=== PATIENT | female | born 1960 | race Caucasian/White ===

== ENCOUNTER 2024-05-17 07:17 | Day surgery (SDC) | payer MEDICARE, OTHER, SELFPAY ==
--- NOTE | 2024-05-17 | PATH_ITS ---
[facility] Accession Number: [id number] No. of containers..01 Tissue . 01 Material submitted: . colon - COLON MASS AT 20 . 01 Diagnosis: COLON MASS AT 20 CM: Tubular adenoma. See comment. MRV 05/22/2024 1320 Local . 01 Comment: The clinical impression of a mass is noted. While no malignancy is seen, correlation with endoscopy is recommended to rule out the possibility of an unsampled, more concerning lesion. . 01 Electronically signed: . Sravanthi Sanabria DO, Pathologist NPI- [id number] . 01 Gross description: . COLON MASS AT 20: Received in formalin are 3 fragment(s) of wen, soft tissue measuring 0.1 x 0.1 x 0.1 cm to 0.4 x 0.3 x 0.2 cm submitted entirely in 1 cassette(s) /ITZ 05/18/2024 0047 Local . 01 Pathologist provided ICD-10: Z12.11 . 01 CPT . 918903 Specimen Comment: A courtesy copy of this report has been sent to [facility] Pathology Performed at: 01 [facility] [address] [place] [address], [place], [place] [id number] MD Alexei Gavin MD Phone: [phone]
[2024-05-17 08:37] VITALS: BP 133/83; PULSE 90; RESP 18; TEMP 37.1; O2SAT 99
[2024-05-17] MEDS: SODIUM CHLORIDE 0.9% 1,000 ML 42 ML IV (08:39)
--- NOTE | 2024-05-17 09:31 | P.HP_ITS ---
History of Present Illness History of Present Illness Date Patient Seen: 05/17/24 Time Patient Seen: 09:32 Chief complaint: Colonoscopy [facility] Medical History (Updated 05/17/24 @ 09:33 by Melisa Jeff MD) Hiatal hernia GERD (gastroesophageal reflux disease) Diarrhea Hypertension DVT (deep venous thrombosis) Pulmonary embolism Surgical History (Updated 05/17/24 @ 08:20 by Ny Meyer RN) History of neck surgery Social History Smoking Status: Never smoker alcohol intake: never Meds Home Medications and Allergies Home Medications Medication Instructions Recorded Confirmed Type sodium,potassium,mag sulfates 17.5 See Rx Instructions PO .COMPLEX 04/19/24 Rx gram-3.13 gram-1.6 gram oral soln #354 mL (Suprep Bowel Prep Kit) apixaban 5 mg tablet (Eliquis) 5 mg PO BID 05/17/24 05/17/24 History lisinopril 10 mg tablet 10 mg PO DAILY 05/17/24 05/17/24 History Allergies Allergy/AdvReac Type Severity Reaction Status Date / Time No Known Drug Allergies Allergy Verified 05/17/24 08:11 Review of Systems Review of Systems Narrative: Chronic diarrhea, x 20 yrs.. ROS: Yes All systems reviewed with the patient and are negative except as otherwise documented Exam Vital Signs (past 8 hours): - 05/17/24 08:37 Temperature 98.8 F Pulse Rate 90 Respiratory Rate 18 Blood Pressure 133/83 Pulse Oximetry 99 Oxygen Delivery Method Room Air Oxygen Delivery Method Room Air Narrative Exam Narrative: Normal abdominal exam, no abnormalities. Assessment & Plan Assessment and plan (1) Encounter for screening colonoscopy: Problem details: 2 previous colonoscopies, last 10 yrs ago, all NORMAL. Had bowel prep yesterday, and stopped Eliquis 2 days ago, will do colonoscopy NOW. Status: Acute Time-Based Coding :: [TOTAL MINUTES] spent with patient and on the chart (including review of chart, obtaining history, exam, reviewing outside data, placing orders, documenting exam and treatment plan, and counseling patient) on [DATE].
--- NOTE | 2024-05-17 09:31 | PM.OP.COLON ---
Operative Date/Time/Diagnoses Date of procedure: 05/17/24 Time of procedure: 09:34 Procedure & Clinicians Surgeon: Melisa Jeff Procedure Notes Procedure in detail: OPERATIVE / PROCEDURE NOTE Haylee Tobar, 1960, 63,Female,CSN: [id number] 05/17/24 PREOPERATIVE DIAGNOSIS: H/O diarrhea x 20+ yrs, last colonoscopy 10 yrs ago was NORMAL. POSTOPERATIVE DIAGNOSIS: Same + Per the colonoscopy to the cecum: 0.5 cm polypectomy performed at 20 cm from the anal verge, rectal. PROCEDURE DONE: Colonoscopy to the cecum. ANESTHESIA: MAC per Anesthesia. COMPLICATIONS: None. SPECIMENS: None. ESTIMATED BLOOD LOSS: NONE. CONDITION: Stable to the PACU. OPERATIVE DESCRIPTION: After proper informed consent was signed by the patient knowing all the risks, benefits, and potential complications and possible alternatives of the procedure, the patient was appropriately identified. Haylee Tobar underwent a bowel prep that was very efficient yesterday, and the colon was clean. After institution of sedation on her left lateral decubitus position, a rectal exam was performed. Normal rectal and anal tone was found. The Olympus colonoscope was placed into her anus and under direct visualization was advanced from the rectum to the rectosigmoid to the sigmoid to the left colon, splenic flexure, transverse colon, hepatic flexure, ascending colon, and all the way to the cecum. Circumferential visualization of the mucosa was possible. The appendix aperture was noted. The ileocecal valve was noted. No large tumors. No ulcers. No inflammatory bowel disease changes were noted. No diverticulae noted in the sigmoid colon. 0.5 cm polypectomy performed at 20 cm from the anal verge, rectal. In the rectum, the scope was retroflexed, and Grade I internal hemorrhoids were noted. The scope was straightened back again. The colon was decompressed, and the scope was retracted out uneventfully. The patient tolerated the procedure well without any complications, was sent to the PACU in stable condition. RECOMMENDATIONS: Continue high-fiber diet - 30-40 gm/day with daily fiber supplementation. Will recommend the time of the next due colonoscopy AFTER the pathology results.
[2024-05-17 09:58] VITALS: BP 124/61; PULSE 83; RESP 15; TEMP 36.8; O2SAT 97
[2024-05-17 10:02] VITALS: BP 122/77; PULSE 80; RESP 13; TEMP 36.6; O2SAT 96
[2024-05-17 10:08] VITALS: BP 134/77; PULSE 81; RESP 20; O2SAT 94
== END 2024-05-17 10:20 | disposition home or self-care (01) ==
PROVIDERS: Referring Provider Surgery; Visit Provider Surgery
PROC: 0DJD8ZZ Inspection of Lower Intestinal Tract, Via Natural or Artificial Opening Endoscopic (ICD-10-PCS; CPT 45378; principal; 2024-05-17 08:45)
DX: Z12.11 Encounter for screening for malignant neoplasm of colon (principal); K64.0 First degree hemorrhoids; D12.6 Benign neoplasm of colon, unspecified
CPT/HCPCS: 45380; 45385; J2704

== ENCOUNTER → 2024-07-17 13:59 | Outpatient (CLI) | payer MEDICARE, OTHER, SELFPAY ==
--- NOTE | 2024-07-17 14:02 | DI.RAD.S_ITS ---
PROCEDURE: XR DEXA AXIAL SKELETON INDICATIONS: MENOPAUSAL STATE COMPARISON: None. FINDINGS: Lumbar Spine: Bone mineral density 1.266 g/cm2, T score 2.0. Left Femoral Neck: Bone mineral density 0.855 g/cm2, T score 0.1 Left Hip: Bone mineral density 1.054 g/cm2, T score 0.9. Fracture Risk Calculation (when applicable): 10-year fracture risk of a major osteoporotic fracture 5.8 percent and of a hip fracture 0.2 percent. (T score greater or equal to -1.0 to: NORMAL) (T score from -1.1 to -2.4: OSTEOPENIA) (T score less than or equal to -2.5: OSTEOPOROSIS) IMPRESSION: Normal---recommend repeat DEXA as clinically indicated. Follow-up guidelines as follows: Osteoporosis: Consider a repeat DEXA and Vertebral Fracture Assessment (VFA) exam in 2 years or sooner if medically necessary, to reassess this patient's status. Osteopenia: Consider a repeat DEXA in 2-3 years to reassess this patient's status, or if there is a new clinical indication. Normal: Consider a repeat DEXA in 5 years or sooner, or if there is a new clinical indication. All treatment decisions require clinical judgment and consideration of individual patient factors, including patient preferences, comorbidities, previous drug use, risk factors not captured in the FRAX model (e.g., frailty, falls, vitamin D deficiency, increased bone turnover, interval significant decline in bone density ) and possible under- or over-estimation of fracture risk by FRAX. In addition, the NOF Guide recommends that FDA-approved medical therapies be considered in postmenopausal women and men age >= 50 years with a: * Hip or vertebral (clinical or morphometric) fracture * T-score of <=-2.5 at the spine or hip * Ten-year fracture probability by FRAX of >= 3% for hip fracture or >=20% for major osteoporotic fracture. Dictated by: Hudson Gill M.D. on 07/18/2024 at 3:27 Approved by: Hudson Gill M.D. on 07/18/2024 at 3:28
== END ==
LOC: RAD 14:01
PROVIDERS: Referring Provider Internal Medicine; Visit Provider Internal Medicine
DX: N95.8 Other specified menopausal and perimenopausal disorders (principal)
CPT/HCPCS: 77080

== ENCOUNTER → 2025-03-07 14:09 | Outpatient (CLI) | payer MEDICARE, OTHER, SELFPAY ==
--- NOTE | 2025-04-02 08:48 | DIAB.MNT ---
Initial Diabetes Medical Nutrition Therapy Assessment Name: Haylee Tobar Date: 03/07/25 Time: 3-4p Dx: Type II Diabetes Provider: Janes Nuñezerine presents for initial DM visit. FH of maternal DM. fighting this for 20 years with prediabetes, Diet changes are significant per report. Cut out carrots and tomatoes. 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 Not taking any DM meds. Has some concerns about senior care safety of DM meds. Diet Recall: 830a: eggs, salsa, +/- cheese and low CHO tortilla or nothing sn: nothing or small burger or apple or dried mushroom snack 4p: chicken or pork with veggies and possibly small bite of potato Eyes: UTD Anthropometrics: Ht: 65 Wt: 236# 02/2025 Weight history: Physical Activity: Barriers include knee and hip pain. no program. Self-Monitoring Blood Glucose: Checking TID. Reports FBG 95-111mg/dl and pc readings 95-124mg/dl. Generally BG can range from 73-141mg/dl per report. none for review. Date Pre Post Pre Post Pre Post HS Diabetes Medications: 0.75mg Trulicity-- not taking 500mg Metformin -- not taking Pertinent Labs: 6.6% 12/2024 Past Medical History: (Last Updated 12/31/24 @ 19:45 by Bronwyn Beckham) Abnormal Pap smear of cervix (~2016) Chicken pox (~1965) Chlamydia (~1984) Diabetes mellitus (~2018) Diarrhea DVT (deep venous thrombosis) (~2021) GERD (gastroesophageal reflux disease) Glaucoma Hiatal hernia History of incontinence of feces History of urinary incontinence Hypertension (~1992) Irritable bowel syndrome Plantar fasciitis Pulmonary embolism Vitiligo (~2019) Wears glasses Nutrition Rx: Carbohydrates: Meal:30g Snack:15-30g Nutrition Diagnosis: - Nutrition knowledge deficit r/t no previous MNT aeb pt report - Predicted inadequate fiber intake r/t limited whole grains and higher fiber foods aeb diet recall Intervention: This participant was very receptive. Provided appropriate educational handouts. Discussed the following topics: Completed intake assessment. Discussed barriers to care. Pathophysiology of T2DM HgA1c, its correlation to blood glucose numbers, and rationale for goal Importance of self-monitoring, how often, and when to check. Suggested checking at different times to evaluate meals Plate Method, impact of macronutrients on blood sugar, meal timing, carbohydrate counting, pairing macronutrients and spreading out carbohydrates for better blood glucose management Recommended servings for carbohydrates at meals and snacks Heart health nutrition AACE vs ADA BG guidelines Encouraged more variety in veggies Role of physical activity and following provider guidelines for safety Created SMART goals for patient self-care and success. Goals: Add carrots and tomatoes back into diet Continued to check BG Follow-up: ANDRAE TAMAYO follow-up in 3-4 weeks Mable Raymundo RDN, RONI Certified Diabetes Care and Hard Candy Batch Mixer P: [phone] Thank you for this referral
== END ==
LOC: DIET 14:10
PROVIDERS: PCP Student in an Organized Health Care Education/Training Program; Referring Provider Student in an Organized Health Care Education/Training Program
DX: E11.9 Type 2 diabetes mellitus without complications (principal); Z71.3 Dietary counseling and surveillance; Z83.3 Family history of diabetes mellitus
CPT/HCPCS: 97802

== ENCOUNTER → 2025-04-02 08:44 | Outpatient (CLI) | payer MEDICARE, OTHER, SELFPAY ==
--- OUTSIDE RECORDS SUMMARY | 2025-04-04 13:47 | XMS_ITS | Clinical Summary ---
Author Organization [facility] Address [address] [place] [address] Care Team Providers Care Robotype Operator Name Role Phone Pcp, None Selected Primary Care Provider Unavail able Encounters Date Type Department Care Team Description 03/04/[address] [facility] Centralized Referrals [address] [place] [address] Pcp, None Selected Referral 03/04/2025 Telephone [facility] Gastroenterology [address] [phone] Pcp, None Selected from Last 3 Months Social History Tobacco Use Types Packs/Day Years Used Date Smoking Tobacco: Never Assessed Comments Unknown Sex and Gender Information Value Date Recorded Sex Assigned at Not on file Legal Sex Female 10:13 AM PST Gender Identity Not on file Sexual Orientation Not on file Plan of Treatment Upcoming Encounters Date Type Department Care Team (Late st Contact Info) Description 04/21/2025 10:30 AM PST Office Visit [facility] Gastroenterology [address] [phone] Josr Ziegler MD [address] [phone] 04/29/2025 8:10 AM PST Office Visit [facility] Foot and Ankle [address] [phone] Raad Teran DPM [address] [phone] Health Maintenance Due Date Last Done Comments Bone Density Scan 1960 Medicare Annual Wellness (AWV) 1960 Depression Screening (PHQ-2) 1971 Cervical Cancer Screening Combined Topic 1989 Cervical Cancer-Pap screening 1989 HPV/Cotest 1989 Colorectal Cancer Screening (Colonoscopy) 2004 Colorectal Cancer Screening (FOBT) 2004 Colorectal Cancer Screening (Fecal DNA) 2004 Colorectal Cancer Screening Combined 2004 Pneumococcal Adult 50+ (2 of 2 - PCV) 04/01/2011 04/01/2010 Fall Risk Screening 2024 COVID-19 Vaccine ( season) 2025 04/13/2021, 06/21/2020, 05/24/2020 Influenza Vaccine (#1) 2025 , 02/05/2020, 02/08/2019, Additional history exists Breast Cancer Screening 07/12/2025 07/13/19, 07/13/2023, 06/09/2020, Additional history exists DTaP,Tdap,and Td Vaccines (3 - Td or Tdap) 03/18/2030 03/18/2020, 04/01/2010, 10/05/1994 RSV Patients Over 60 years OR qualifying ( Patients) (1 - 1-dose 75+ series) 2034 Pneumococcal Combined Age 0-49 Discontinued 04/01/2010 Hepatitis B Vaccines Completed 12/28/2011, 11/12/1969, 06/15/1969, Additional history exists Zoster Vaccines Completed 03/04/2021, 12/22/2020 HPV Vaccines Aged Out No longer eligi ble based on patient's age to complete this topic Hepatitis A Vaccines Aged Out No long er eligible based on patient's age to complete this topic IPV Vaccines Aged Out No longer eligi ble based on patient's age to complete this topic MMR Vaccines Aged Out No longer eligi ble based on patient's age to complete this topic Insurance MEDICARE PART A AND B [employer] Care Teams Robotype Operator Relationship Specialty Start Date End Date Pcp, None Selected PCP - General Internal Medicine 04/05/24
--- OUTSIDE RECORDS SUMMARY | 2025-04-04 13:47 | XMS_ITS | Encounter Summary ---
Author Organization [facility] Address [address] [place] [address] Care Team Providers Care Coding Team Lead Name Role Phone Chuyita Bray OD Unavailable Italo Cheng MD Primary Care Provider Addison Wick MD Unavailable [phone] Esequiel Cullen Unavailable [phone] Dara Diop MD Unavailable Reason for Visit * Reason Comments Message Center Call Encounter Details Date Type Department Care Team (Late st Contact Info) Description 06/09/2020 Telephone [facility] [address] [place] [phone] [place] [address] [place] [address] Message Center Call Social History Tobacco Use Types Packs/Day Years Used Date Smoking Tobacco: Never Smokeless Tobacco: Never Alcohol Use Standard Drinks/Week Comments Not Asked 0 (1 standard drink = 0.6 oz pur e alcohol) Comments No Sex and Gender Information Value Date Recorded Sex Assigned at Not on file Legal Sex Female 6:17 PM PST Gender Identity Not on file Sexual Orientation Not on file documented as of this encounter Miscellaneous Notes * Telephone Encounter - Cathleen Gan - 06/09/2020 10:04 AM PST Tech/OPT/Farooq Other -- Pt is calling in regards to her eyes. She stated she is having flashes OU for 4 or 5 months. PCP: Italo Cheng MD [facility] Additional Comments: Kip Rodríguez advised to send message to care team. Pt gave number [phone] for the best call back number. Best timeframe to call: Anytime OK to leave a detailed message: Yes OK to contact via [facility] member website: Yes Additional phone number: None. Thank you, ECAC documented in this encounter Plan of Treatment Not on file documented as of this encounter Visit Diagnoses Not on filedocumented in this encounter Care Teams Coding Team Lead Relationship Specialty Start Date End Date Italo Cheng MD PCP - General 07/02/14 10/20/24 Chuyita Bray OD [address] [place] [address] Pilot Safety Inspector: Auto-assigned Optometry, General 04/28/14 Addison Wick MD Otolaryngology Physician: Auto-assigned Otolaryngology (ENT) 07/04/14 Esequiel Cullen ARNP [facility] [address] [place] [phone] Gastroenterology PA/COMPUTER TECHNICAL SUPPORT SPECIALIST: Autoassigned Gastroenterology 10/23/15 Dara Diop MD [address] [place] [address] Dermatology Physician: Auto-assigned Dermatology 02/19/16 documented as of this encounter
--- OUTSIDE RECORDS SUMMARY | 2025-04-04 13:47 | XMS_ITS | Encounter Summary ---
Author Organization [facility] Address [address] [place] [address] Care Team Providers Care Ldr Rn Name Role Phone Chuyita Bray OD Unavailable Italo Cheng MD Primary Care Provider Addison Wick MD Unavailable [phone] Esequiel Cullen Unavailable [phone] Dara Diop MD Unavailable Reason for Visit * Reason Comments Message Center Call TECH/ OPT/ KATARINA Encounter Details Date Type Department Care Team (Late st Contact Info) Description 05/28/2020 Telephone [facility] [address] [place] [phone] KatarinaLivierna, OD [address] [place], [place] [phone] Message Center Call (TECH/ OPT/ KATARINA ) Social History Tobacco Use Types Packs/Day Years [...] encounter Miscellaneous Notes * Telephone Encounter - Uri Seo - 05/28/2020 3:59 PM PST TECH/ OPT/ KATARINA Other -- Patient was seen in Oct for a routine exam and she is not due until next Oct but she wouldlike to been seen sooner because she is having vision problems. Please call patient to advise. PCP: Italo Cheng MD [facility] Additional Comments: none Best timeframe to call: anytime OK to leave a detailed message: Yes OK to contact via [facility] member website: No Additional phone number: none Thank You, Uri Seo ECAC PAR documented in this encounter Plan of Treatment Not on file documented as of this encounter Visit Diagnoses Not on filedocumented in this encounter Care Teams Ldr Rn Relationship Specialty Start Date End Date Italo Cheng MD PCP - General 07/02/14 10/20/24 Chuyita Bray OD [address] [place] [address] State Patrol Officer: Auto-assigned Optometry, General 04/28/14 Addison Wick MD Otolaryngology Physician: Auto-assigned Otolaryngology (ENT) 07/04/14 Esequiel Cullen ARNP [facility] [address] [place] [phone] Gastroenterology PA/AUTOMATION AND CONTROLS MANAGER: Autoassigned Gastroenterology 10/23/15 Dara Diop MD [address] [place] [address] Dermatology Physician: Auto-assigned Dermatology 02/19/16 documented as of this encounter
--- OUTSIDE RECORDS SUMMARY | 2025-04-04 13:47 | XMS_ITS | Clinical Summary ---
Author Organization [facility] Address [address] [place] [address] Care Team Providers Care Stamp Clerk Name Role Phone Chuyita Bray AJAY Unavailable Addison Wick MD Unavailable [phone] Esequiel Cullen Unavailable [phone] Dara Diop MD Unavailable Source Comments NOTE: The information displayed by Care Everywhere is extracted from the complete medical record and may not identify all current or past patient conditions.[facility] Allergies Active Allergy Reactions Criticality Noted Date Comments Epinephrine Nausea 05/15/1989 Medications omega 2-fmn-ipb-fish oil 300-1,000 mg capsule Take 2 capsules (2 g) by mouth 2 times daily 120 capsule 11 11/23/2016 Active Docosahexanoic Acid-Eicosapent 120-180 mg Cap Take 1,000 mg by mouth Active lisinopriL (PRINVIL) 10 mg tabletIndicatio ns:Essential hypertension, benign TAKE 1 TABLET (10 MG) BY MOUTH DAILY 90 tablet 3 06/16/2021 10:19 AM PST 03/04/2021 Active blood glucose test strips (ONETOUCH VERIO)Indicatio ns:Prediabetes Use as directed to test blood sugars up to 1 time daily 100 strip 11 07/07/2021 12:50 PM PST 04/30/2021 Active Active Problems Problem Noted Date Diagnosed Date Vaginal lump 03/04/2021 Contact dermatitis and other eczema 03/04/2021 Borderline glaucoma, open angle with borderline findings 03/04/2021 Astigmatism 03/04/2021 S/P cervical spinal fusion 06/05/2020 Cervical spondylosis with radiculopathy 05/26/19 Visual disturbance 05/25/2020 Overview (05/25/2020): With looking to extreme lateral gaze Late 2019 Negative optometry Negative MRI/MRA of brain Sliding hiatal hernia 01/17/2017 HSIL (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 10/04/2016 Overview (02/05/2019): Pap done 09/2016 Negative PAP/HPV 01/2019 Abnormal blood sugar 08/15/2011 Overview (08/02/2019): Component Latest Ref Rng & Units 08/15/2005 09/04/2007 04/01/2010 08/15/2011 HEMOGLOBIN A1C 4.5 - 5.6 % 6.3 (H) 6.3 (H) 6.3 (H) 6.3 (H) ESTIMATED AVERAGE GLUCOSE mg/dL 134 134 Component Latest Ref Rng & Units 07/13/2012 09/09/2013 06/20/2014 10/12/2016 HEMOGLOBIN A1C 4.5 - 5.6 % 6.4 (H) 6.1 (H) 5.8 (H) 5.9 (H) ESTIMATED AVERAGE GLUCOSE mg/dL 137 128 120 123 Component Latest Ref Rng & Units 11/23/2016 12/07/2017 HEMOGLOBIN A1C 4.5 - 5.6 % 6.0 (H) 5.8 (H) ESTIMATED AVERAGE GLUCOSE mg/dL 126 120 GERD (gastroesophageal reflux disease) 8 Essential hypertension, benign 08/15/2005 Obesity (BMI 30-39.9) 08/15/2005 Overview (08/02/2019): BMI Readings from Last 6 Encounters: 01/11/18 35.48 kg/m 12/07/17 35.58 kg/m 11/29/17 36.21 kg/m 12/14/16 39.72 kg/m 11/23/16 40.27 kg/m 07/12/17 40.27 kg/m Wt Readings from Last 6 Encounters: 01/11/18 : 213 lb 3.2 oz (96.7 kg) 12/07/17 : 213 lb 12.8 oz (97 kg) 11/29/17 : 217 lb 9.6 oz (98.7 kg) 12/14/16 : 238 lb 11.2 oz (108.3 kg) 11/23/16 : 242 lb (109.8 kg) 11/23/16 : 242 lb (109.8 kg) Family history of cardiovascular disease 006 Overview (08/15/2011): father CAD 60 yo. 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 Colpo with LOLY-2, neg ECC. LEEP/ECC negative path. 11/2017: Negative PAP/HPV 01/2019: Negative PAP/HPV History of loop electrosurgi cecelia excision procedure (LEEP) 11/29/2017 08/02/2019 H/O thyroglossal duct cyst 11/23/2016 0 08/02/2019 Major depressive disorder, r ecurrent episode, in partial remission 07/30/2014 08/02/2019 Overview (08/24/2015): Patient stopped Bupropion 06/2015. Remotely on fluoxetine. Thyroglossal duct cyst 07/01/201407/25 Neck mass 06/24/2014 07/25/2014 Overview (06/24/2014): U/S 06/2014: Midline complex cystic nearly 5 cm mass. Right thyroid lobe nodule. ENT referral ordered (see VC 06/2014) Atypical squamous cells of u ndetermined significance (ASC-US) on cervical Pap smear 09/23/2013 10/04/2016 Overview (09/23/2013): 08/2013. Neg HPV Jannette found on pap as well. CARE PLAN 04/01/2010 08/02/2019 Overview (07/31/2012): Med Tx Plan Updated. Brit Benitez DO, 07/31/2012DM DESIRED GOALS: Blood sugar goals: HbA1C < 7.0% Fasting blood glucose average 80-120 mg/dl Bedtime blood glucose 140-160 mg/dl LDL < 100, BP < 130/80 [facility] CIS CARE COORDINATION: DIABETES 09/04/2007 08/02/2019 Overview: This item will trigger decision support tools related to health maintenance and therapy. Update the Problem List with additional items related to the patient?s condition. Patients who are not part of this population should have this item resolved. Immunizations Immunization Administration Dates Next Due *STANDARD DOSE SYRINGE* (FluARIX,FluLAVAL,FluZONE) (6+ mos) TRI 01/24/2014,02/07/2013,01/30/2012,02/07,01/27/2009 *STANDARD DOSE SYRINGE* (FluLAVAL,FluZONE,FluARIX or AFLURIA) (6+ mos) QUAD 03/04/2021,02/05/2020,02/08/2019,02/19,02/10/2017,02/24/2016,01/16/2015 FluVIRIN (4+ years) Tri *VIAL* 0,03/07/2008,03/06/2007,06/30 H1N1 Influenza (.50 not PF) 03/03/2009 HepB (Hepatitis B) 12/28/2011, 0,06/15/1969,05/15 Herpes Zoster (SHINGRIX) 03/04/2021,12/22/2020 Influenza 03/15/2005,03/15/2004,03/21/2003 Influenza (.50 PF) 01/27/2009 Influenza (.50 not PF) 01/27/2010,2007,03/06/2007,06/30 Influenza (0.5 PF) 01/30/2012,02/07/2011 Influenza, whole 02/08/2010 Moderna SARS-CoV-2 Vaccinati on (12 + y/o)(EDUCATION FACULTY MEMBER) 06/21/2020,05/24/2020 Moderna SARS-CoV-2 Vaccinati on (18 + y/o)(Monovalent Booster Half-Dose)(RED-CAP) 04/13/2021 Novel Influenza H1N1, unspec ified formulation 03/03/2009 PPD (Tb skin test) 05/28/2007,06/05/2006, 006 PPV23 (PNEUMOVAX 23, Pneumoc occal Polysaccharide Vaccine) 04/01/2010 Td (Tetanus, Diphtheria) 10/05/1994 Tdap (Tetanus, Diphtheria, a cellular Pertussis) 03/18/2020,04/01/2010 Family History Medical History Relation Comments Ovarian Cancer Maternal Grandmother CHD (male<55,female<60) Other 1 Father o r Brother - Patient reported 02/15/2009 CHD (male<55,female<60) Other 2 Mother o r Sister - Patient reported 02/15/2009 Breast CA (mother,sister,aunt) No History Relation Status Comments Maternal Grandmother Other 1 Other 2 Social History Tobacco Use Types Packs/Day Years Used Date Smoking Tobacco: Never Smokeless Tobacco: Never Alcohol Use Standard Drinks/Week Comments Not Asked 0 (1 standard drink = 0.6 oz pur e alcohol) Comments No Sex and Gender Information Value Date Recorded Sex Assigned at Not on file Legal Sex Female 6:17 PM PST Gender Identity Not on file Sexual Orientation Not on file Last Filed Vital Signs Vital Sign Reading Time Taken Comments Blood Pressure 138/84 03/04/2021 8:21 AM PDT Pulse 84 03/04/2021 8:21 AM PDT Temperature 36.5 C (97.7 F) 03/04/2021 8:21 AM PDT Respiratory Rate 20 06/03/2020 2:38 PM PST Oxygen Saturation 97% 03/04/2021 8:21 AM PDT Inhaled Oxygen Concentration - - Weight 118.9 kg (262 lb 1.6 oz) 12/22/2020 2:37 PM PDT Height 165.1 cm (5' 5) 06/05/2020 11:4 6 AM PST Body Mass Index 43.62 06/05/2020 11:46 AM PST Plan of Treatment Health Maintenance Due Date Last Done Comments Adult HIV Screen (1-time) 1974 Hep C Screening (1-time) 1977 Vaccine: Pneumococcal (2 of 2 - PCV) 04/01/2011 04/01/2010 Breast Cancer Screening: Mammogram 06/09/2022 06/09/2020, 06/05/2019, 12/17/2016, Additional history exists FLU VACCINE (#1) 01/13/2025 03/04/2021, , 02/08/2019, Additional history exists Vaccine: [id number] (3 - T d or Tdap) 03/18/2030 03/18/2020, 04/01/2010, 10/05/1994 Vaccine: RSV (1 - 1-dose 75+ series) 2034 Cervical Cancer Screening: HPV Discontinued 0 01/23/2019, 11/29/2017, 09/21/2016, Additional history exists Cervical Cancer Screening: Pap/HPV Co-Testing Discontinued 01/23/2019, 11/29/2017, 10/13/2016, Additional history exists Vaccine: Shingles Completed 03/04/2021, 12/22/2020 Procedures Procedure Name Priority Date/Time Associated Diagnosis Comments MAMMO SCREENING, BILAT(2-VIEW) INCL CAD Routine 06/09/2020 11:58 AM PST IADNA HUMAN PAPILLOMAVIRUS HI-RSK TYP POOLD RSLT Routine 01/23/2019 1:50 PM PDT History of loop electrosurgical excision procedure (LEEP) LOLY II (cervical intraepithelial neoplasia II) from Last 3 Months or Most Recently Relevant to Health Maintenance Results * MAMMOGRAPHY SCREENING 3D, BILATERAL (06/09/2020 11:58 AM PST) Anatomical Region Laterality Modality Other 06/09/2020 11:5 8 AM PST Impressions 06/10/2020 3:09 PM PST IMPRESSION: BILATERAL BREAST - CATEGORY 1 Negative, no evidence of malignancy. OVERALL ASSESSMENT - NEGATIVE RECOMMENDATION: Routine screening mammography. The patient will be notified by letter of these findings. (Patients with findings requiring additional imaging will be contacted to schedule an appointment). Regardless of mammography results, women should seek medical attention for any of the following: A breast lump that feels or looks different from the surrounding breast tissue, skin changes, clear or bloody nipple discharge, or nipple retraction. Seek medical attention for these conditions even if a recent mammogram was normal. Signed by: Sancho Costa Date: 06/10/2020 3:09 PM Narrative 06/10/2020 3:09 PM PST [HST]: Screening [SAS]: Screening Screening digital bilateral mammography, including tomosynthesis 06/09/2020 11:58 AM Comparison is made to films from June 05, 2019 and films dating back to 2011. Routine screening views of each breast were performed with 3D/tomosynthesis and synthetic 2D reconstructions were created. Computer-aided detection was applied.? Bilateral Breast Findings: The breasts are almost entirely fat. No significant masses, calcifications or other abnormalities are seen. us Self Referral MAMMOGRAPHY Final Result * HPV RNA, HIGH RISK SCREEN W/RFLX TO GENOTYPE 16,18/45 (01/23/2019 1:50 PM PDT) HPV HIGH RISK GENOTYPES NEGATIVE [facility] Comment: Ref. Range: Negative The Aptima HPV assay is an in vitro nucleic acid amplification test for the qualitative detection of E6/E7 viral messenger RNA (mRNA) from 14 high-risk types of human papillomavirus (HPV) in cervical specimens. The high-risk HPV types detected by the assay include: 16, 18, 31, 33, 35, 39, 45, 51, 52, 56, 58, 59, 66, and 68. It does not discriminate between the 14 high-risk types. SOURCE CERVIX [facility] 01/23/2019 1:50 PM PDT 01/24/2019 9:13 AM PDT us Michelle Brandt MD LAB W/O ABNORMAL RESULTS Final R esult [facility] [address] [place] [address] [facility] [address] [facility] [address] [place] [address] from Last 3 Months or Most Recently Relevant to Health Maintenance Insurance [employer] Advance Directives For more information, please contact: [phone] Documents on File Type Date Recorded Patient Supervisor Assembly Expl anation Advance Directive and Living Will 06/03/2020 12:02 PM Durable Power of Adult Education Manager 06/03/2020 12:02 PM Advance Directive and Living Will 05/27/2020 9:08 PM Durable Power of Adult Education Manager 05/27/2020 9:08 PM Durable Power of Adult Education Manager 07/23/2014 10:02 AM Advance Directive and Living Will 07/23/2014 10:02 AM Care Teams Stamp Clerk Relationship Specialty Start Date End Date Chuyita Bray OD [address] [place] [address] Agricultural Education Teacher: Auto-assigned Optometry, General 04/28/14 Addison Wick MD Otolaryngology Physician: Auto-assigned Otolaryngology (ENT) 07/04/14 Esequiel Cullen HR SHARED SERVICES CONSULTANT [facility] [address] [place] [phone] Gastroenterology PA/LABEL SEWER: Autoassigned Gastroenterology 10/23/15 Dara Diop MD [address] [place] [address] Dermatology Physician: Auto-assigned Dermatology 02/19/16
--- OUTSIDE RECORDS SUMMARY | 2025-04-04 13:47 | XMS_ITS | Clinical Summary ---
Author Organization [facility] Address [address] [place] [address] Care Team Providers Care Dough Mixer Operator Name Role Phone Naresh Hawkins MD Primary Care Provider [phone] Pcp, Unknown Unavailable Unavailable Gavin Joseph MD Unavailable Allergies Active Allergy Reactions Criticality Noted Date Comments Epinephrine Dizziness Low 09/13/2021 Had dental procedure 20 years ago, did not feel safe driving home after getting med. Medications calcium carbonate 500 MG chewable tablet Chew and swallow 1,000 mg by mouth 3 times a day as needed for indigestion/ heartburn. Active esomeprazole 20 MG EC tablet Take 20 mg by mouth daily as needed (heartburn). Active [place]-3 Fatty Acids (OMEGA 3 OR) Take 1 capsule by mouth daily. Active Ascorbic Acid (VITAMIN C OR) Take by mouth. Active apixaban (Eliquis) 5 MG tabletIndications :Acute deep vein thrombosis (DVT) of iliac vein of right lower extremity (HCC) Take 1 tablet (5 mg) by mouth 2 times a day. 180 tablet 3 2 Active lisinopril 10 MG tabletIndications :Primary hypertension Take 1 tablet (10 mg) by mouth daily. 90 tablet 3 2 Active Active Problems Problem Noted Date Diagnosed Date Acute pulmonary embolism 09/14/2021 Acute deep vein thrombosis ( DVT) of iliac vein of right lower extremity 09/13/2021 Acute deep vein thrombosis ( DVT) of iliac vein of right lower extremity 09/13/2021 Immunizations Immunization Administration Dates Next Due Hepatitis B adult 12/28/2011, 0,06/15/1969,05/15 Influenza quadrivalent PF 03/04/2021,,02/08/2019,02/19,02/10/2017,02/24/2016,01/16/2015 Influenza trivalent 01/27/2010, 8,03/06/2007,06/30,03/15/2005,03/15/2004 Influenza trivalent PF 01/24/2014,2012,01/30/2012,02/07,01/27/2009 Influenza, unspecified 03/21/2003 Influenza, whole virus 02/08/2010 Novel influenza [id number], all formulations 03/03/2009 Pneumococcal polysaccharide PPSV23 (Pneumovax 23) 04/01/2010 Td 2 Lf tetanus toxoid 10/05/1994 Tdap 03/18/2020,04/01/2010 Zoster recombinant (Shingrix) 03/04/2021, 021 Social History Tobacco Use Types Packs/Day Years Used Date Smoking Tobacco: Never Assessed Comments Unknown Sex and Gender Information Value Date Recorded Sex Assigned at Not on file Legal Sex Female 6:06 AM PST Gender Identity Not on file Sexual Orientation Not on file Last Filed Vital Signs Vital Sign Reading Time Taken Comments Blood Pressure 146/86 02/09/2022 12:54 PM PDT Pulse 85 02/09/2022 12:54 PM PDT Temperature 37.4 C (99.3 F) 02/09/2022 12:54 PM PDT Respiratory Rate 18 02/09/2022 12:5 4 PM PDT Oxygen Saturation 98% 02/09/2022 12: 54 PM PDT Inhaled Oxygen Concentration - - Weight 114.9 kg (253 lb 6.7 oz) 022 12:54 PM PDT Height 164.5 cm (5' 4.76) 02/09/2022 1 2:54 PM PDT Body Mass Index 42.48 02/09/2022 12:54 PM PDT Plan of Treatment Health Maintenance Due Date Last Done Comments Depression Screening (PHQ-2) 1971 HIV Screening 1974 Cervical Cancer Screening 1984 HPV Self Collect [address] Colonography 2004 Colonoscopy 2004 Colorectal Cancer Screening 2004 FIT-DNA 2004 FOBT/FIT 2004 Sigmoidoscopy 2004 Pneumococcal Vaccine: 50+ Years (2 of 2 - PCV) 04/01/2011 04/01/2010 Osteoporosis Screening 2024 COVID-19 Vaccine ( season) 2025 04/13/2021, 06/21/2020, 05/24/2020 Influenza Vaccine (#1) 2025 , 02/05/2020, 02/08/2019, Additional history exists Breast Cancer Screening 07/12/2025 07/13/19, 07/13/2023, 06/09/2020, Additional history exists Lipid Disorders Screening 12/16/2026 12/16/2021 DTaP, Tdap and Td Vaccines (3 - Td or Tdap) 03/18/2030 03/18/2020, 04/01/2010, 10/05/1994 RSV Vaccine (1 - 1-dose 75+ series) 2034 Zoster Vaccine Completed 03/04/2021, 12/22/2020 Hepatitis C Screening Completed 12/16/2021 HPV Vaccine Aged Out No longer eligi ble based on patient's age to complete this topic Hepatitis A Vaccine Aged Out No longe r eligible based on patient's age to complete this topic Meningococcal B Vaccine Aged Out No l onger eligible based on patient's age to complete this topic Advance Directives For more information, please contact: [phone] * Full Code (Latest Code Status on File) Date Activated Date Inactivated Comments 09/13/2021 5:44 PM 09/14/2021 10:35 PM Care Teams Dough Mixer Operator Relationship Specialty Start Date End Date Naresh Hawkins MD PCP - General Family Practice 09/14/21 Pcp, Unknown A patient who has a PCP but is unsure of the name 09/13/21 Gavin Joseph MD A patient who has a PCP but is unsure of the name Oncology Referring Provider [facility] 11/10/21
--- OUTSIDE RECORDS SUMMARY | 2025-04-04 13:47 | XMS_ITS | Encounter Summary ---
Author Organization [facility] Address [address] [place] [address] Care Team Providers Care Knitter Machine Name Role Phone Chuyita Bray AJAY Unavailable Italo Cheng MD Primary Care Provider Addison Wick MD Unavailable [phone] Esequiel Cullen Unavailable [phone] Dara Diop MD Unavailable Reason for Referral * E-Consult (Routine) - Closed Specialty Diagnoses / Procedures Referred By Contact Referred To Contact Otolaryngology (ENT) / Otolaryngology/ENT Diagnoses H/O removal of thyroglossal duct cyst Procedures E-CONSULT [facility]/ENT Karlos Ga MD [address] [place] [address] Phone: tel: [phone] fax:[phone] [facility] Otolaryngology (Ear, Nose and Throat) [address] [place] [address] Phone: tel: fax: Referral ID Status Reason Start Date Expiration Date V isits Requested Visits Authorized [id number] Closed Evaluate and Treat-Surgery if Indicated 05/06/2020 06/05/2020 1 1 Encounter Details Date Type Department Care Team (Late st Contact Info) Description 05/06/2020 Orders Only [facility] [address] [place] [address] Karlos Ga MD [address] [place] [address] H/O removal of thyroglossal duct cyst (Primary Dx) Social History Tobacco Use Types Packs/Day Years [...] on file documented as of this encounter Plan of Treatment Not on file documented as of this encounter Visit Diagnoses Diagnosis H/O removal of thyroglossal duct cyst- Primary Personal history of surgery to other organs documented in this encounter Care Teams Knitter Machine Relationship Specialty Start Date End Date Italo Cheng MD PCP - General 07/02/14 10/20/24 Chuyita Bray OD [address] [place] [address] Technical Assistant: Auto-assigned Optometry, General 04/28/14 Addison Wick MD Otolaryngology Physician: Auto-assigned Otolaryngology (ENT) 07/04/14 Esequiel Cullen ARNP [facility] SURGER [address] [place] [phone] Gastroenterology PA/RETAIL MANAGEMENT KEYHOLDER: Autoassigned Gastroenterology 10/23/15 Dara Diop MD [address] [place], [place] [address] [address] Dermatology Physician: Auto-assigned Dermatology 02/19/16 documented as of this encounter
--- OUTSIDE RECORDS SUMMARY | 2025-04-04 13:47 | XMS_ITS | Encounter Summary ---
Author Organization [facility] Address [address] [place] [address] Care Team Providers Care Content Architect Name Role Phone Chuyita Bray AJAY Unavailable Italo Cheng MD Primary Care Provider Addison Wick MD Unavailable [phone] Esequiel Cullen Unavailable [phone] Dara Diop MD Unavailable Encounter Details Date Type Department Care Team (Late st Contact Info) Description 07/02/2020 Orders Only [facility] [address] [place] [phone] Hill Montgomery MA [address] [place] [address] S/P cervical spinal fusion (Primary Dx) Social History Tobacco Use Types [...] on file documented as of this encounter Procedures Procedure Name Priority Date/Time Associated Diagnosis Comments RADIOLOGIC EXAMINATION, SPINE, CERVICAL Routine 07/20/2020 3:51 PM PST S/P cervical spinal fusion documented in this encounter Results * X-RAY SPINE CERVICAL 2V AP+LAT (07/20/2020 3:51 PM PST) Anatomical Region Laterality Modality Other 07/20/2020 3:51 PM PST Impressions 07/20/2020 5:27 PM PST IMPRESSION: Status post C5-6 and C6-7 ACDF. Hardware is intact and unchanged. Alignment is unchanged. Signed by: Bhupendra Aldridge Date: 07/20/2020 5:27 PM Narrative 07/20/2020 5:27 PM PST [HST]: s/p cervical fusion EXAMINATION: CERVICAL 2 VIEW AP, LAT , 07/20/2020 3:51 PM HISTORY: s/p cervical fusion COMPARISONS: 06/03/2020 FINDINGS: Status post C5-6 and C6-7 ACDF with zero-profile hardware. Hardware is intact and unchanged in position and alignment without evidence of complication. Incorporation is similar to the previous exam. Alignment is unchanged and anatomic. No spondylolisthesis. Vertebral body heights are maintained. No acute fracture. Multilevel degenerative facet arthropathy is similar to the previous exam. David Holloway MD GENERAL DIAGNOSTIC Final Result documented in this encounter Visit Diagnoses Diagnosis S/P cervical spinal fusion- Primary Arthrodesis status documented in this encounter Care Teams Content Architect Relationship Specialty Start Date End Date Italo Cheng MD PCP - General 07/02/14 10/20/24 Chuyita Bray OD [address] [place] [address] Chef Under: Auto-assigned Optometry, General 04/28/14 Addison Wick MD Otolaryngology Physician: Auto-assigned Otolaryngology (ENT) 07/04/14 Esequiel Cullen ARNP [facility] SUR[facility] [address] [place] [address] Gastroenterology PA/BINDER TECHNICIAN: Autoassigned Gastroenterology 10/23/15 Dara Diop MD [address] [place] [phone] Dermatology Physician: Auto-assigned Dermatology 02/19/16 documented as of this encounter
--- OUTSIDE RECORDS SUMMARY | 2025-04-04 13:47 | XMS_ITS | Encounter Summary ---
Author Organization [facility] Address [address] [place] [address] Care Team Providers Care Direct Service Professional Name Role Phone Chuyita Bray AJAY Unavailable Italo Cheng MD Primary Care Provider + Addison Wick MD Unavailable [phone] Esequiel Cullen Unavailable [phone] Dara Diop MD Unavailable Encounter Details Date Type Department Care Team (Late st Contact Info) Description 06/06/2020 Notes Encounter (No LOS) [facility] [address] [place] [address] [place] [phone] Keven Beard MD [address] [place] [address] Social History Tobacco Use Types Packs/Day Years [...] on filedocumented in this encounter Care Teams Direct Service Professional Relationship Specialty Start Date End Date Italo Cheng MD PCP - General 07/02/14 10/20/24 Chuyita Bray OD [address] [place] [address] Advertising Solicitor: Auto-assigned Optometry, General 04/28/14 Addison Wick MD Otolaryngology Physician: Auto-assigned Otolaryngology (ENT) 07/04/14 Esequiel Cullen ARNP [facility] SURGER [address] [place] [address] Gastroenterology PA/TECHNICAL SYSTEMS ARCHITECT: Autoassigned Gastroenterology 10/23/15 Dara Diop MD [address] [place] [address] Dermatology Physician: Auto-assigned Dermatology 02/19/16 documented as of this encounter
--- NOTE | 2025-05-02 08:24 | DIAB.MNTFU ---
Follow-up Diabetes Medical Nutrition Therapy Assessment Name: Haylee Tobar Date: 04/02/25 Time: 9-10a Dx: Type II Diabetes Provider: Janes Nuñezerine presents for follow-up DM visit. FH of maternal DM. Recently ill and BG were erratic per report, though upon review of meter over the last 7-10 days BG have been mostly in goal. [facility]. Then forgot meds while at [place]. Plans to restart this weekend. Endorses weight loss efforts most her life. Following lower CHO diet x 10 years. Reports BM q 4 days. Reduced appetite. GLP1 SE likely. Did have diarrhea x 15 years per report, which is not improved but now some constipation. has GI appt. Eating BID + grazing Really wanting to stick to very low CHO diet. Somewhat open to adding carrots, tomatoes, and onions to diet, but even that feels like more carbs than she prefers, though does report she has not seen elevations with these veggies. Diet Recall: 830a: few bites of homemade marinara and berries and nuts 10-11a: sausage and eggs sn: nothing or small burger or apple or dried mushroom snack 4p: chicken or pork with veggies and possibly small bite of potato Eats nuts every day, enjoys avocados, sweet potatoes, 1/2 apple Anthropometrics: Ht: 64 Wt: 225# reported 03/2025 236# 02/2025 Weight history: Physical Activity: Barriers include knee and hip pain. no program. Wants to start water aerobics, however worries about diarrhea. Has GI appt scheduled.? Self-Monitoring Blood Glucose: BG checking and most in goal. Endorses some higher numbers this past week with illness, but most are meeting ADA goal. Date Pre Post Pre Post Pre Post HS 03/27 181 138 111 03/28 112 87 179 120 03/29 107 122 119 115 03/30 125 84 03/31 111 106 105 107 04/01 107 97 91 04/02 98 Diabetes Medications: 0.75mg Trulicity 500mg Metformin -- not taking Pertinent Labs: 6.6% 12/2024 Past Medical History: (Last Updated 12/31/24 @ 19:45 by Bronwyn Beckham) Abnormal Pap smear of cervix (~2016) Chicken pox (~1965) Chlamydia (~1984) Diabetes mellitus (~2018) Diarrhea DVT (deep venous thrombosis) (~2021) GERD (gastroesophageal reflux disease) Glaucoma Hiatal hernia History of incontinence of feces History of urinary incontinence Hypertension (~1992) Irritable bowel syndrome Plantar fasciitis Pulmonary embolism Vitiligo (~2019) Wears glasses Nutrition Rx: Carbohydrates: Meal:30gSnack:15-30g Nutrition Diagnosis: - Nutrition knowledge deficit r/t no previous MNT aeb pt report-- in progress - Predicted inadequate fiber intake r/t limited whole grains and higher fiber foods aeb diet recall -- in progress Intervention: This participant was very receptive. Provided appropriate educational handouts. Discussed the following topics: Completed intake assessment. Discussed barriers to care. Reviewed benefits and sources of fiber Encouraged veggie variety Discussed eating out strategies Hydration Medication management Benefits of adding fruit and beans to diet in moderation Created SMART goals for patient self-care and success. Goals: Add carrots and tomatoes back into diet- in progress Continued to check BG- met Restart Trulicity- new Include beans in diet- new use larger glass for water- new Follow-up: ANDRAE TAMAYO follow-up in 6-8 weeks per pt regloria Raymundo RDN, RONI Certified Diabetes Care and Floater Operator P: [phone] Thank you for this referral
== END ==
LOC: DIET 08:45
PROVIDERS: PCP Student in an Organized Health Care Education/Training Program; Referring Provider Student in an Organized Health Care Education/Training Program
DX: E11.9 Type 2 diabetes mellitus without complications (principal); Z71.3 Dietary counseling and surveillance; Z83.3 Family history of diabetes mellitus; Z79.85 Long-term (current) use of injectable non-insulin antidiabetic drugs
CPT/HCPCS: 97803

== ENCOUNTER → 2025-05-13 12:41 | Outpatient (CLI) | payer MEDICARE, OTHER, SELFPAY ==
--- NOTE | 2025-05-13 12:41 | DI.MG.S_ITS ---
MM screening mammo BI: 05/13/2025. BI-RADS: 1 CLINICAL: 64-year old female for bilateral screening mammogram. Tyrer-Cuzick lifetime risk of 4.0%. No personal or first-degree family history of breast cancer. PRIOR EXAMS 06/09/2020, 06/05/2019, 12/17/2016, 09/19/2015. MAMMOGRAPHY TECHNIQUE: 2D and 3D (tomosynthesis) digital mammographic views obtained, with additional images as needed for full coverage. Current study was also evaluated with a Computer Aided Detection (CAD) system. DENSITY A. The breasts are almost entirely fatty. MAMMOGRAPHY FINDINGS Bilateral: No suspicious mass, asymmetry, microcalcification, or other abnormality seen. IMPRESSION: * No evidence of malignancy. RECOMMENDATIONS Bilateral * Annual screening mammography. OVERALL ASSESSMENT CATEGORY BI-RADS-1: Negative. The [employer] recommends annual screening mammography beginning at age 40 for women with average risk of breast cancer. ELECTRONICALLY SIGNED: Vianey Zavala M.D. on 05/13/2025 at 06:14:00 PM PT Interpreting Station ID: [id number]
== END ==
PROVIDERS: PCP Student in an Organized Health Care Education/Training Program; Referring Provider Student in an Organized Health Care Education/Training Program; Visit Provider Student in an Organized Health Care Education/Training Program
DX: Z12.31 Encounter for screening mammogram for malignant neoplasm of breast (principal); R92.313 Mammographic fatty tissue density, bilateral breasts
CPT/HCPCS: 77063; 77067